=== PATIENT | female | born 1990 | race Caucasian/White ===

== ENCOUNTER 2018-05-27 17:45 | Inpatient (IN) | payer OTHER ==
[2018-05-27 18:29] VITALS: BMI 25.2
--- NOTE | 2018-05-27 19:24 | HP ---
COWS - Scale Resting Pulse: 1= IN 81-100 Sweatin= Streaming Sweat Restless Observation: 1= Difficult to Sit Still Pupil Size: 1= Pupils >than Normal Bone or Joint Aches: 1= Mild Discomfort Runny Nose/ Eye Tearin= Runny Nose/Eyes GI Upset > 30mins: 2= Nausea/Diarrhea Tremor Observation: 2= Slight Tremor Visible Yawning Observation: 0= None Anxiety or Irritability: 2=Irritable/Anxious Goose Flesh Skin: 0=Smooth Skin COWS Score: 16 CIWA Score Nausea/Vomitin Muscle Tremors: 2 Anxiety: 3 Agitation: 0-Normal Activity Paroxysmal Sweats: 2 Orientation: 1-Uncertain about Date Tacttile Disturbances: 1-Very Mild Itch/Numbness Auditory Disturbances: 0-None Visual Disturbances: 0-None Headache: 0-None Present CIWA-Ar Total Score: 12 - Admission Criteria OAS Guidelines: Admission for Medically Managed Detox: Requires at least one of the followin. CIWA greater than 12 2. Seizures within the past 24 hours 3. Delirium tremens within the past 24 hours 4. Hallucinations within the past 24 hours 5. Acute intervention needed for co occurring medical disorder 6. Acute intervention needed for co occurring psychiatric disorder 7. Severe withdrawal that cannot be handled at a lower level of care (continued vomiting, continued diarrhea, abnormal vital signs) requiring intravenous medication and/or fluids 8. Patient presents the following: CIWA greater than 12 Admission Criteria Met: Admission criteria met Admission ROS [facility] Chief Complaint: "heroin and xanax detox" Allergies/Adverse Reactions: Allergies Allergy/AdvReac Type Severity Reaction Status Date / Time No Known Allergies Allergy Verified 05/27/18 18:19 History of Present Illness: 27 yo female with hx of xanax, heroin (IV), cocaine (nasal) dependence is here seeking detox. Reports last detox two years ago at [facility]. Denies needle sharing, reports receives needles through need;e exchange program. PMHX: Asthma, Hep C. Psych: Depression and anxiety , reports no psych follow up, reports only medicate while in detox. Denies hx of seizures, blackouts or overdose. Longest period sobriety six months. Exam Limitations: No Limitations - Ebola screening Have you traveled outside of the country in the last 21 days: No (N) Have you had contact with anyone from an Ebola affected area: No Do you have a fever: No - Review of Systems Constitutional: Chills, Diaphoresis, Loss of Appetite, Weakness (20 lbs in past two months), Unintentional Wgt. Loss EENT: reports: Tearing, Nose Congestion (runny nose) Respiratory: reports: No Symptoms reported Cardiac: reports: No Symptoms Reported GI: reports: Constipated (last BM this AM), Nausea, Poor Appetite, Poor Fluid Intake : reports: No Symptoms Reported Musculoskeletal: reports: Back Pain, Muscle Pain Integumentary: reports: Pruritus Neuro: reports: Weakness Endocrine: reports: Increased Thirst Hematology: reports: No Symptoms Reported Psychiatric: reports: Orientated x3, Depressed Other Systems: Reviewed and Negative Patient History - Patient Medical History Hx Anemia: No Hx Asthma: Yes Hx Chronic Obstructive Pulmonary Disease (COPD): No Hx Cancer: No Hx Cardiac Disorders: No Hx Congestive Heart Failure: No Hx Hypertension: No Hx Hypercholesterolemia: No Hx Pacemaker: No HX Cerebrovascular Accident: No Hx Seizures: No Hx Dementia: No Hx Diabetes: No Hx Gastrointestinal Disorders: No Hx Liver Disease: Yes (Hep C) Hx Genitourinary Disorders: No Hx Sexually Transmitted Disorders: Yes (gonorrhea ) Hx Renal Disease (ESRD): No Hx Thyroid Disease: No Hx Human Immunodeficiency Virus (HIV): No Hx Hepatitis C: Yes (no tx ) Hx Depression: Yes Hx Suicide Attempt: No Hx Bipolar Disorder: No Hx Schizophrenia: No - Patient Surgical History Past Surgical History: Yes Other Surgical History: rght ankle fx - PPD History Previous Implant?: No Documented Results: Negative w/o proof PPD to be Administered?: Yes - Reproductive History Patient is a Female of Child Bearing Age (11 -55 yrs old): Yes Last Menstrual Period: 05/25/18 Patient : No - Smoking Cessation Smoking history: Current every day smoker Have you smoked in the past 12 months: Yes Aproximately how many cigarettes per day: 20 Hx Chewing Tobacco Use: No Initiated information on smoking cessation: Yes 'Breaking Loose' booklet given: 05/27/18 - Substance & Tx. History Hx Alcohol Use: No Hx Substance Use: Yes Substance Use Type: Heroin, Tranquilizers Hx Substance Use Treatment: Yes (Reports last detox two years ago at [facility].) - Substances abused Alprazolam (Xanax) Substance route: Oral Frequency: Daily Amount used: 3 x 2MG + Age of first use: 12 Date of last use: 05/27/18 Heroin Substance route: Injection Frequency: Daily Amount used: 2 BUNDLES + Age of first use: 15 Date of last use: 05/27/18 Family Disease History - Family Disease History Other Family History: uncle: DERW, heroin, THC Admission Physical Exam [facility] - Vital Signs Vital Signs: Vital Signs - 24 hr 05/27/18 18:19 Temperature 96.0 F L Pulse Rate 88 Respiratory 18 Rate Blood Pressure 110/70 - Physical General Appearance: Yes: Nourished, Disheveled, Moderate Distress, Thin, Sweating, Anxious HEENTM: Yes: EOMI, Hearing grossly Normal, Normal ENT Inspection, Normal Voice, Pharynx Normal, Rhinorrhea, Other (cheilitis) Respiratory: Yes: Chest Non-Tender, Lungs Clear, Normal Breath Sounds, No Respiratory Distress, No Accessory Muscle Use Neck: Yes: Within Normal Limits Breast: Yes: Breast Exam Deferred Cardiology: Yes: Regular Rhythm, Regular Rate Abdominal: Yes: Normal Bowel Sounds, Non Tender, Flat, Soft Genitourinary: Yes: Within Normal Limits Back: Yes: Normal Inspection Musculoskeletal: Yes: full range of Motion, Gait Steady, Pelvis Stable Extremities: Yes: Normal Capillary Refill, Normal Inspection, Normal Range of Motion, Non-Tender Neurological: Yes: interventional sale consultant II-XII NML intact, Fully Oriented, Alert, Motor Strength 5/5, Depressed Affect Integumentary: Yes: Track Francisco (right foot, bilateral anticubital) Lymphatic: Yes: Within Normal Limits - Diagnostic (1) IVDU (intravenous drug user) Current Visit: Yes Status: Acute (2) Asthma Current Visit: Yes Status: Chronic Qualifiers: Asthma severity: mild Asthma persistence: intermittent Asthma complication type: unspecified Qualified Code(s): J45.20 - Mild intermittent asthma, uncomplicated (3) Cocaine dependence Current Visit: Yes Status: Acute Qualifiers: Substance use status: uncomplicated Qualified Code(s): F14.20 - Cocaine dependence, uncomplicated (4) Sedative, hypnotic or anxiolytic dependence with withdrawal, uncomplicated Current Visit: Yes Status: Acute (5) Opioid dependence with withdrawal Current Visit: Yes Status: Acute Cleared for Admission [facility] - Detox or Rehab [facility] Level of Care: Medically Managed Detox Regimen/Protocol: Methadone/Valium Breathalyzer - Breathalyzer Breathalyzer: 0 POC Urine test - Test device test lot number: [id number] Expiration date: 10/13/19 - Control test control: Yes - Result Urine Test Results: Negative - NO line present Urine Drug Screen - Test Device Lot number: [id number] Expiration date: 01/12/20 - Control Is test valid?: Yes - Results Drug screen NEGATIVE: No Urine drug screen results: DREW-Cocaine, FEN-Fentanyl, MOP-Opiates, BZO- Benzodiazepines Inpatient Rehab Admission - Rehab Decision to Admit Inpatient rehab admission?: No
[2018-05-27] MEDS ORDERED: BISMUTH SUBSALICYLATE 524 MG/30 ML UD PO PRN (19:30)
[2018-05-27] MEDS ORDERED: diazePAM 5 MG TABLET PO PRN (19:30)
[2018-05-27] MEDS ORDERED: MAG HYDROX/AL HYDROX/SIMETH 30 ML UNIT-DOSE CUP PO PRN (19:30)
[2018-05-27] MEDS ORDERED: MAGNESIUM CITRATE 300 ML BOTTLE PO PRN (19:30)
[2018-05-27] MEDS ORDERED: cloNIDine HCL 0.1 MG TABLET PO PRN (19:30)
[2018-05-27] MEDS ORDERED: NICOTINE POLACRILEX 2 MG GUM BUC PRN (19:30)
[2018-05-27] MEDS ORDERED: ACETAMINOPHEN 325 MG TABLET (FP) PO PRN ×2 (19:30)
[2018-05-27] MEDS ORDERED: MENTHOL/PHENOL 1 EACH UD MM PRN (19:30)
[2018-05-27] MEDS ORDERED: MAGNESIUM HYDROX 2400MG/30ML ORAL SUSPENSION 30 ML CUP PO PRN (19:30)
[2018-05-27] MEDS ORDERED: IBUPROFEN 400 MG TABLET (FP) PO PRN (19:30)
[2018-05-27] MEDS ORDERED: METHOCARBAMOL 500 MG TABLET PO PRN (19:30)
[2018-05-27] MEDS ORDERED: METHADONE HCL 10 MG TABLET (FOR DETOX USE ONLY) PO ONE ×2 (20:00→23:00)
[2018-05-27] MEDS ORDERED: diphenhydrAMINE HCL 25 MG CAPSULE (FP) PO ONE (22:01)
--- NOTE | 2018-05-27 22:03 | PN ---
S Progress Note Note: Vital Signs Temperature 97.5 F L 05/27/18 21:36 Pulse Rate 81 05/27/18 21:36 Respiratory Rate 19 05/27/18 21:36 Blood Pressure 108/68 05/27/18 21:36 O2 Sat by Pulse Oximetry (%) c/o of difficulty sleeping one time dose benadryl 50 mg hs
[2018-05-27] MEDS: BACITRACIN 0.9 GM PACKET TP SCH (22:17)
[2018-05-27] MEDS: THIAMINE HCL 100 MG TABLET (FP) PO SCH (22:18)
[2018-05-27] MEDS: diazePAM 5 MG TABLET PO SCH (22:30)
[2018-05-28] MEDS: diazePAM 5 MG TABLET PO SCH ×3 (05:25→22:05)
[2018-05-28] MEDS ORDERED: METHADONE HCL 10 MG TABLET (FOR DETOX USE ONLY) PO ONE (10:00)
[2018-05-28 10:08] LABS: ALBUMIN 3.5 g/dl (3.4-5.0); ALK PHOS 59 U/L (45-117); ANION GAP 4 MMOL/L (8-16); BILIRUBIN,TOTAL 0.4 mg/dL (0.2-1); BLOOD UREA NITROGEN 7 mg/dL (7-18); CALCIUM 9.1 mg/dL (8.5-10.1); CHLORIDE 104 mmol/L (98-107); CO2 31 mmol/L (21-32); CREATININE 0.7 mg/dL (0.55-1.3); GLUCOSE,RANDOM 87 mg/dL (74-106); POTASSIUM 3.7 mmol/L (3.5-5.1); SGOT/AST 12 U/L (15-37); SGPT/ALT 27 U/L (13-61); SODIUM 139 mmol/L (136-145)
[2018-05-28 10:13] LABS: HEMATOCRIT 33.9 % (32.4-45.2); HEMOGLOBIN 11.1 GM/dL (10.7-15.3); MCH 26.1 pg (25.7-33.7); MCHC 32.6 g/dl (32.0-36.0); MEAN CELL VOLUME 80.1 fl (80-96); MEAN PLT VOLUME 8.6 fl (7.5-11.1); PLATELET COUNT 268 K/MM3 (134-434); RBC 4.24 M/mm3 (3.60-5.2); RDW 17.5 % (11.6-15.6); WHITE BLOOD COUNT 6.3 K/mm3 (4.0-10.0)
--- NOTE | 2018-05-28 10:21 | PN ---
[facility] CIWA - CIWA Score Nausea/Vomitin-No Nausea/No Vomiting Muscle Tremors: 3 Anxiety: 3 Agitation: 3 Paroxysmal Sweats: 3 Orientation: 0-Oriented Tacttile Disturbances: 0-None Auditory Disturbances: 0-None Visual Disturbances: 0-None Headache: 0-None Present CIWA-Ar Total Score: 12 S COWS - Scale Resting Pulse: 0= ME 80 or Below Sweatin=Flushed/Facial Moisture Restless Observation: 1= Difficult to Sit Still Pupil Size: 0= Normal to Room Light Bone or Joint Aches: 1= Mild Discomfort Runny Nose/ Eye Tearin= Runny Nose/Eyes GI Upset > 30mins: 0= None Tremor Observation of Outstretched Hands: 1= Tremor [place], Not Seen Yawning Observation: 2= >3x During Session Anxiety or Irritability: 1=Feels Anxious/Irritable Goose Flesh Skin: 0=Smooth Skin COWS Score: 10 S Progress Note (SOAP) Subjective: irritable agitation sweats shakes interrupted sleep body aches nausea Objective: 05/28/18 10:19 Vital Signs Temperature 97.2 F L 05/28/18 09:17 Pulse Rate 70 05/28/18 09:17 Respiratory Rate 18 05/28/18 09:17 Blood Pressure 104/64 05/28/18 09:17 O2 Sat by Pulse Oximetry (%) Laboratory Tests 05/28/18 05/28/18 07:00 07:00 WBC 6.3 RBC 4.24 Hgb 11.1 Hct 33.9 MCV 80.1 MCH 26.1 MCHC 32.6 RDW 17.5 H Plt Count 268 MPV 8.6 Sodium 139 Potassium 3.7 Chloride 104 Carbon Dioxide 31 Anion Gap 4 L BUN 7 Creatinine 0.7 Creat Clearance w eGFR 99.64 Random Glucose 87 Calcium 9.1 Total Bilirubin 0.4 AST 12 L ALT 27 Alkaline Phosphatase 59 Total Protein 8.0 Albumin 3.5 aaox3 ambulating no acute distress Assessment: 05/28/18 11:03 withdrawal sx Plan: continue detox increase fluids
[2018-05-28] MEDS: BACITRACIN 0.9 GM PACKET TP SCH ×2 (10:24→22:05)
[2018-05-28] MEDS: NICOTINE 21 MG/24 HOURS TOPICAL PATCH TD SCH (10:25)
[2018-05-28] MEDS: PRENATAL VITAMINS W/ FOLIC ACID TABLET (FP) PO SCH (10:25)
--- NOTE | 2018-05-28 10:55 | EKG ---
Test Reason : Blood Pressure : / mmHG Vent. Rate : 057 BPM Atrial Rate : 057 BPM P-R Int : 158 ms QRS Dur : 092 ms QT Int : 470 ms P-R-T Axes : 078 065 062 degrees QTc Int : 457 ms SINUS BRADYCARDIA OTHERWISE NORMAL ECG WHEN COMPARED WITH ECG OF 27-MAY-2018 22:38, NO SIGNIFICANT CHANGE WAS FOUND Confirmed by MD Ashli, Josh ([id number]) on 05/28/2018 10:55:32 AM Referred By: Confirmed By:Josh Cornelius MD
--- NOTE | 2018-05-28 11:09 | CONSULT ---
[facility] Psychiatric Consult - Data Date of interview: 05/28/18 Admission source: Self-referred Identifying data: Ms Giron is a 27 years old [place] female, mother of 2 children, unemployed receiving public assistance, homeless seeking detox treatment for opioid and benzodiazepine Substance Abuse History: Reports history of heroin and xanax use. Refer to addiction counselor's summary for further information Medical History: Significant for bronchial astma, hepatis C, treatment for gonorrhea and orthosurgery for fracture right ankle. Smokes cigarettes 1 ppd Psychiatric History: Denies history of previous psychiatric treatment Physical/Sexual Abuse/Trauma History: Denies history of emotional, physical or sexual abuse as well as DV relationship Additional Comment: Reports history of a few misdemeanor arrests Mental Status Exam - Mental Status Exam Alert and Oriented to: Place, Person Cognitive Function: Fair Patient Appearance: Well Groomed Mood: Hopeful, Euthymic Patient Behavior: Cooperative Speech Pattern: Clear Voice Loudness: Normal Thought Process: Intact, Goal Oriented Hallucinations: Denies Suicidal Ideation: Denies Homicidal Ideation: Denies Insight/Judgement: Poor Sleep: Poorly Appetite: Poor Muscle strength/Tone: Normal Gait/Station: Normal Psychiatric Findings - Problem List ([place] 1, 2,3) (1) Substance-induced sleep disorder Current Visit: Yes Status: Acute (2) Opioid dependence with withdrawal Current Visit: Yes Status: Acute (3) Sedative, hypnotic or anxiolytic dependence with withdrawal, uncomplicated Current Visit: Yes Status: Acute (4) Nicotine dependence Current Visit: Yes Status: Chronic (5) Asthma Current Visit: Yes Status: Chronic Qualifiers: Asthma severity: mild Asthma persistence: intermittent Asthma complication type: unspecified Qualified Code(s): J45.20 - Mild intermittent asthma, uncomplicated (6) Hepatitis C Current Visit: Yes Status: Chronic - Initial Treatment Plan Initial Treatment Plan: Continue inpatient detoxification
--- NOTE | 2018-05-28 13:04 | EKG ---
Test Reason : Blood Pressure : / mmHG Vent. Rate : 056 BPM Atrial Rate : 056 BPM P-R Int : 162 ms QRS Dur : 096 ms QT Int : 500 ms P-R-T Axes : 072 069 074 degrees QTc Int : 482 ms SINUS BRADYCARDIA WITH SINUS ARRHYTHMIA NONSPECIFIC T WAVE ABNORMALITY PROLONGED QT ABNORMAL ECG NO PREVIOUS ECGS AVAILABLE Confirmed by Douglas Fitzgerald ([id number]) on 05/28/2018 1:04:03 PM Referred By: WENDI MCDONOUGH Confirmed By:Douglas Fitzgerald
[2018-05-28] MEDS: MELATONIN 5 MG TABLETS PO PRN (22:05)
[2018-05-28] MEDS: THIAMINE HCL 100 MG TABLET (FP) PO SCH (22:05)
[2018-05-29] MEDS ORDERED: METHADONE HCL 10 MG TABLET (FOR DETOX USE ONLY) PO ONE (10:00)
[2018-05-29] MEDS: NICOTINE 21 MG/24 HOURS TOPICAL PATCH TD SCH (10:23)
[2018-05-29] MEDS: diazePAM 5 MG TABLET PO SCH ×2 (10:24→22:08)
[2018-05-29] MEDS: BACITRACIN 0.9 GM PACKET TP SCH ×2 (10:24→22:08)
[2018-05-29] MEDS: PRENATAL VITAMINS W/ FOLIC ACID TABLET (FP) PO SCH (10:24)
[2018-05-29] MEDS ORDERED: cloNIDine HCL 0.1 MG TABLET PO ONE (12:15)
--- NOTE | 2018-05-29 12:18 | PN ---
[facility] CIWA - CIWA Score Nausea/Vomitin-No Nausea/No Vomiting Muscle Tremors: 3 Anxiety: 2 Agitation: 3 Paroxysmal Sweats: 3 Orientation: 0-Oriented Tacttile Disturbances: 0-None Auditory Disturbances: 0-None Visual Disturbances: 0-None Headache: 0-None Present CIWA-Ar Total Score: 11 S COWS - Scale Resting Pulse: 0= [place] 80 or Below Sweatin=Flushed/Facial Moisture Restless Observation: 1= Difficult to Sit Still Pupil Size: 0= Normal to Room Light Bone or Joint Aches: 1= Mild Discomfort Runny Nose/ Eye Tearin= Nasal Congestion GI Upset > 30mins: 0= None Tremor Observation of Outstretched Hands: 1= Tremor [place], Not Seen Yawning Observation: 1= 1-2x During Session Anxiety or Irritability: 1=Feels Anxious/Irritable Goose Flesh Skin: 3=Piloerection COWS Score: 11 [facility] Progress Note (SOAP) Subjective: sweats restless anxiety body aches shakes Objective: 05/29/18 12:17 Vital Signs Temperature 98.1 F 05/29/18 09:41 Pulse Rate 71 05/29/18 09:41 Respiratory Rate 16 05/29/18 09:41 Blood Pressure 128/68 05/29/18 09:41 O2 Sat by Pulse Oximetry (%) Laboratory Tests 05/28/18 05/28/18 05/28/18 07:00 07:00 07:00 WBC 6.3 RBC 4.24 Hgb 11.1 Hct 33.9 MCV 80.1 MCH 26.1 MCHC 32.6 RDW 17.5 H Plt Count 268 MPV 8.6 Sodium 139 Potassium 3.7 Chloride 104 Carbon Dioxide 31 Anion Gap 4 L BUN 7 Creatinine 0.7 Creat Clearance w eGFR 99.64 Random Glucose 87 Calcium 9.1 Total Bilirubin 0.4 AST 12 L ALT 27 Alkaline Phosphatase 59 Total Protein 8.0 Albumin 3.5 RPR Titer Nonreactive labs noted aaox3 ambulating no acute distress Assessment: 05/29/18 12:17 withdrawal sx Plan: continue detox increase fluids baclofen tid naproxyn 500mg bid clonidine 0.1mg bid with parameters ordered.
[2018-05-29] MEDS: BACLOFEN 10 MG TABLET (FP) PO SCH ×2 (14:54→22:08)
[2018-05-29] MEDS ORDERED: cloNIDine HCL 0.1 MG TABLET PO SCH (22:00)
[2018-05-29] MEDS: MELATONIN 5 MG TABLETS PO PRN (22:08)
[2018-05-29] MEDS: THIAMINE HCL 100 MG TABLET (FP) PO SCH (22:08)
[2018-05-30] MEDS ORDERED: diazePAM 5 MG TABLET PO SCH (06:00)
[2018-05-30] MEDS: BACLOFEN 10 MG TABLET (FP) PO SCH ×3 (06:22→22:23)
[2018-05-30] MEDS ORDERED: METHADONE HCL 10 MG TABLET (FOR DETOX USE ONLY) PO ONE (10:00)
[2018-05-30] MEDS: PRENATAL VITAMINS W/ FOLIC ACID TABLET (FP) PO SCH (10:53)
[2018-05-30] MEDS: BACITRACIN 0.9 GM PACKET TP SCH ×2 (10:53→22:23)
[2018-05-30] MEDS: NICOTINE 21 MG/24 HOURS TOPICAL PATCH TD SCH (10:54)
--- NOTE | 2018-05-30 12:57 | PN ---
[facility] Progress Note (SOAP) Subjective: sweats interrupted sleep anxiety Objective: 05/30/18 12:56 Vital Signs Temperature 97.9 F 05/30/18 06:30 Pulse Rate 49 L 05/30/18 06:30 Respiratory Rate 18 05/30/18 06:30 Blood Pressure 96/56 L 05/30/18 06:30 O2 Sat by Pulse Oximetry (%) aaox3 ambulating no acute distress Assessment: 05/30/18 12:57 some withdrawal sx Plan: continue detox increase fluids d/c in am
[2018-05-30 17:22] VITALS: TEMP 98.1
[2018-05-30] MEDS: THIAMINE HCL 100 MG TABLET (FP) PO SCH (22:23)
[2018-05-30] MEDS: MELATONIN 5 MG TABLETS PO PRN (22:24)
[2018-05-31] MEDS: BACLOFEN 10 MG TABLET (FP) PO SCH (05:35)
[2018-05-31] MEDS ORDERED: METHADONE HCL 5 MG TABLET (FOR DETOX USE ONLY) PO ONE (06:00)
[2018-05-31 07:02] VITALS: BP 111/61; PULSE 64
--- NOTE | 2018-05-31 08:55 | DS ---
[facility] Detox Discharge Summary Admission Date: 05/27/18 Discharge Date: 05/31/18 - History Present History: Opioid Dependence Additional Comments: Patient medically stable. Patient to follow up ar [facility]. Patient to follow up with primary care provider. - Physical Exam Results Vital Signs: Vital Signs Temperature 98.1 F 05/31/18 06:00 Pulse Rate 64 05/31/18 06:00 Respiratory Rate 18 05/31/18 06:00 Blood Pressure 111/61 05/31/18 06:00 O2 Sat by Pulse Oximetry (%) - Treatment Hospital Course: Detox Protocol Followed, Detoxed Safely, Responded well, Discharged Condition Good, Rehab Referral Accepted - Medication Discharge Medications: Ambulatory Orders NK [No Known Home Medication] 05/27/18 - Diagnosis (1) IVDU (intravenous drug user) Status: Acute (2) Asthma Status: Chronic Qualifiers: Asthma severity: mild Asthma persistence: intermittent Asthma complication type: unspecified Qualified Code(s): J45.20 - Mild intermittent asthma, uncomplicated (3) Cocaine dependence Status: Acute Qualifiers: Substance use status: uncomplicated Qualified Code(s): F14.20 - Cocaine dependence, uncomplicated (4) Sedative, hypnotic or anxiolytic dependence with withdrawal, uncomplicated Status: Acute (5) Opioid dependence with withdrawal Status: Acute - AMA Did Patient Leave Against Medical Advice: Yes
== END 2018-05-31 09:00 | disposition home or self-care (01) | DRG 773 ==
LOC: YASAS 17:45 → Y6N 19:47
PROVIDERS: ADMIT Surgery; ATTEND Surgery
PROC: HZ2ZZZZ Detoxification Services for Substance Abuse Treatment (ICD-10-PCS; principal; 2018-05-27)
DX: F11.23 Opioid dependence with withdrawal (principal); F13.230 Sedative, hypnotic or anxiolytic dependence with withdrawal, uncomplicated; F14.20 Cocaine dependence, uncomplicated; F17.210 Nicotine dependence, cigarettes, uncomplicated; F19.282 Other psychoactive substance dependence with psychoactive substance-induced sleep disorder; J45.20 Mild intermittent asthma, uncomplicated; B18.2 Chronic viral hepatitis C; Z87.42 Personal history of other diseases of the female genital tract
CPT/HCPCS: 36415; 80053; 85027; 86593; 93005; 93010; J0475; J0735

== ENCOUNTER 2018-06-27 14:12 | Inpatient (IN) | payer OTHER ==
[2018-06-27 14:56] VITALS: BMI 24.7
--- NOTE | 2018-06-27 15:51 | HP ---
COWS - Scale Resting Pulse: 2= [place] 101-120 Sweatin= Chills/Flushing Restless Observation: 3= Extraneous Movement Pupil Size: 0= Normal to Room Light Bone or Joint Aches: 4=Acute Joint/Muscle Pain Runny Nose/ Eye Tearin= Runny Nose/Eyes GI Upset > 30mins: 2= Nausea/Diarrhea Tremor Observation: 2= Slight Tremor Visible Yawning Observation: 0= None Anxiety or Irritability: 4=Extreme Anxiety Goose Flesh Skin: 0=Smooth Skin COWS Score: 20 CIWA Score Nausea/Vomitin Muscle Tremors: 4-Moderate,w/Arms Extend Anxiety: 4-Mod. Anxious/Guarded Agitation: 4-Moderately Restless Paroxysmal Sweats: 4-Forehead w/Sweat Beads Orientation: 3-Disoriented Date>2 days Tacttile Disturbances: 0-None Auditory Disturbances: 2-Mild Harshness/Frighten Visual Disturbances: 0-None Headache: 0-None Present CIWA-Ar Total Score: 24 - Admission Criteria OASAS Guidelines: Admission for Medically Managed Detox: Requires at least one of the followin. CIWA greater than 12 2. Seizures within the past 24 hours 3. Delirium tremens within the past 24 hours 4. Hallucinations within the past 24 hours 5. Acute intervention needed for co occurring medical disorder 6. Acute intervention needed for co occurring psychiatric disorder 7. Severe withdrawal that cannot be handled at a lower level of care (continued vomiting, continued diarrhea, abnormal vital signs) requiring intravenous medication and/or fluids 8. Admission ROS [facility] Allergies/Adverse Reactions: Allergies Allergy/AdvReac Type Severity Reaction Status Date / Time No Known Allergies Allergy Verified 06/27/18 14:51 History of Present Illness: pt here requesting detox from heroin use , reports 2.5 bundles /day " and more " , reports relapse after d/c from this facility , IVDU and via inhalation , needles from exchange program , denies sharing , + re-using , denies abscess , denies prior OD , first age use 3 years ago , multiple detox admissions ( [facility], this facility ) , denies prior rehab. Denies MMTP cocaine : 1 bag via inhalation and > 2 bags crack cocaine daily < 1 year xanax : 2-3 /day x 1 year , denies seizures , latest use yesterday " one piece " current symptoms as above etoh : occaisonal " not much " tobacco : 1 ppd PMHX : asthma since childhood ( hospitalized in [place] , denies intubation ) , hep C s/p tx 2 years ago ( RF= IVDU ) PSHX : C-sx x2 , r ankle ORIF w/ hardware 2-3 years ago ( does not recall exact date ) Psych : denies current SI / HI , reports depression " sometimes " lmp : 2 days ago irregular ages 12 and 9 both in [place] w/ maternal GM SHx : homeless , unemployed , reports finances habit from friends and family , denies current illicit activities , reports prior legal issues drug - related " it's all fixed now " . Exam Limitations: Clinical Condition - Ebola screening Have you traveled outside of the country in the last 21 days: No (N) Have you had contact with anyone from an Ebola affected area: No Do you have a fever: No - Review of Systems Constitutional: See HPI EENT: reports: See HPI, Tearing, Nose Congestion Respiratory: reports: No Symptoms reported Cardiac: reports: No Symptoms Reported GI: reports: See HPI : reports: No Symptoms Reported Musculoskeletal: reports: See HPI Integumentary: reports: See HPI Neuro: reports: No Symptoms reported Endocrine: reports: No Symptoms Reported Psychiatric: reports: Orientated x3, Anxious Patient History - Patient Medical History Hx Anemia: No Hx Asthma: Yes Hx Chronic Obstructive Pulmonary Disease (COPD): No Hx Cancer: No Hx Cardiac Disorders: No Hx Congestive Heart Failure: No Hx Hypertension: No Hx Hypercholesterolemia: No Hx Pacemaker: No HX Cerebrovascular Accident: No Hx Seizures: No Hx Dementia: No Hx Diabetes: No Hx Gastrointestinal Disorders: No Hx Liver Disease: Yes (Hep C) Hx Genitourinary Disorders: No Hx Sexually Transmitted Disorders: Yes (gonorrhea ) Hx Renal Disease (ESRD): No Hx Thyroid Disease: No Hx Human Immunodeficiency Virus (HIV): No Hx Hepatitis C: Yes (no tx ) Hx Depression: Yes Hx Suicide Attempt: No Hx Bipolar Disorder: No Hx Schizophrenia: No - Patient Surgical History Past Surgical History: Yes Hx Neurologic Surgery: No Hx Cataract Extraction: No Hx Cardiac Surgery: No Hx Lung Surgery: No Hx Breast Surgery: No Hx Breast Biopsy: No Hx Abdominal Surgery: No Hx Appendectomy: No Hx Cholecystectomy: No Hx Genitourinary Surgery: No Hx Section: No Hx Orthopedic Surgery: No Other Surgical History: rght ankle fx - PPD History Date: 05/29/18 - Reproductive History Last Menstrual Period: 05/25/18 - Smoking Cessation Smoking history: Current every day smoker Have you smoked in the past 12 months: Yes Aproximately how many cigarettes per day: 20 Hx Chewing Tobacco Use: No Initiated information on smoking cessation: No - Substances abused Alprazolam (Xanax) Substance route: Oral Frequency: Daily Amount used: 3 x 2MG + Age of first use: 26 Date of last use: 06/26/18 Heroin Substance route: Injection Frequency: Daily Amount used: 2 BUNDLES + Age of first use: 23 Date of last use: 06/27/18 Alcohol Substance route: Oral Frequency: Daily Amount used: VODKA- 1PT/ 2 BEERS Age of first use: 13 Date of last use: 06/26/18 Cocaine Substance route: Inhalation Frequency: Daily Amount used: 2BAGS Age of first use: 20 Date of last use: 06/26/18 Family Disease History - Family Disease History Family Disease History: Diabetes: Grandparent (hld, dm , htn ), Other: Grandparent, Father (unknown ), Mother (d. cervical CA age 40 ), Brother (1 w / DM , anemia , hernia , spina bifida ), Sister (8 siblings ), Son (A & W , does not keep in touch ), Daughter (A & W ) Admission Physical Exam [facility] - Vital Signs Vital Signs: Vital Signs - 24 hr 06/27/18 14:50 Temperature 98 F Pulse Rate 102 H Respiratory 18 Rate Blood Pressure 123/66 - Physical General Appearance: Yes: Disheveled, Moderate Distress, Anxious HEENTM: Yes: EOMI, Hearing grossly Normal, Normocephalic, Normal Voice, Nasal Congestion, Rhinorrhea, Other (poor dentition , many missing teeth) Respiratory: Yes: Chest Non-Tender, Lungs Clear Neck: Yes: No masses,lesions,Nodules, Trachea in good position Cardiology: Yes: Regular Rhythm, Regular Rate, S1, S2 Abdominal: Yes: Normal Bowel Sounds, Soft Musculoskeletal: Yes: Gait Steady Extremities: Yes: Normal Range of Motion, Non-Tender Neurological: Yes: Alert, Motor Strength 5/5 Integumentary: Yes: Warm, Track Francisco (extensive dilshad UE , / feet w/ induration , no apparent abscess at this time) - Diagnostic (1) Cocaine dependence Current Visit: Yes Status: Chronic Qualifiers: Substance use status: uncomplicated Qualified Code(s): F14.20 - Cocaine dependence, uncomplicated (2) Opioid dependence with withdrawal Current Visit: Yes Status: Acute (3) Sedative, hypnotic or anxiolytic dependence with withdrawal, uncomplicated Current Visit: Yes Status: Acute (4) Nicotine dependence Current Visit: Yes Status: Chronic Qualifiers: Nicotine product type: cigarettes Breathalyzer - Breathalyzer Breathalyzer: 0 POC Urine test - Test device test lot number: [id number] Expiration date: 10/13/19 - Control test control: Yes Urine Drug Screen - Test Device Lot number: [id number] Expiration date: 03/14/20 - Control Is test valid?: Yes - Results Drug screen NEGATIVE: No Urine drug screen results: DREW-Cocaine, MET-Methamphetamine, AMP-Amphetamines, FEN-Fentanyl, MOP-Opiates, OXY-Oxycodone, BZO-Benzodiazepines Inpatient Rehab Admission - Rehab Decision to Admit Inpatient rehab admission?: No
[2018-06-27] MEDS ORDERED: METHOCARBAMOL 500 MG TABLET PO PRN (16:01)
[2018-06-27] MEDS ORDERED: NICOTINE POLACRILEX 2 MG GUM BUC PRN (16:01)
[2018-06-27] MEDS ORDERED: MAGNESIUM HYDROX 2400MG/30ML ORAL SUSPENSION 30 ML CUP PO PRN (16:01)
[2018-06-27] MEDS ORDERED: BISMUTH SUBSALICYLATE 524 MG/30 ML UD PO PRN (16:01)
[2018-06-27] MEDS ORDERED: ACETAMINOPHEN 325 MG TABLET (FP) PO PRN ×2 (16:01)
[2018-06-27] MEDS ORDERED: MAGNESIUM CITRATE 300 ML BOTTLE PO PRN (16:01)
[2018-06-27] MEDS ORDERED: cloNIDine HCL 0.1 MG TABLET PO PRN (16:01)
[2018-06-27] MEDS ORDERED: MAG HYDROX/AL HYDROX/SIMETH 30 ML UNIT-DOSE CUP PO PRN (16:01)
[2018-06-27] MEDS ORDERED: MENTHOL/PHENOL 1 EACH UD MM PRN (16:01)
[2018-06-27] MEDS ORDERED: METHADONE HCL 10 MG TABLET (FOR DETOX USE ONLY) PO ONE ×2 (16:05→23:00)
[2018-06-27] MEDS: diazePAM 5 MG TABLET PO SCH (22:07)
[2018-06-27] MEDS: THIAMINE HCL 100 MG TABLET (FP) PO SCH (22:07)
[2018-06-27] MEDS: MELATONIN 5 MG TABLETS PO PRN (22:07)
[2018-06-28] MEDS: diazePAM 5 MG TABLET PO SCH ×3 (05:31→21:26)
[2018-06-28] MEDS ORDERED: METHADONE HCL 10 MG TABLET (FOR DETOX USE ONLY) PO ONE ×2 (10:00)
[2018-06-28 10:09] LABS: HEMATOCRIT 34.8 % (32.4-45.2); MCH 25.6 pg (25.7-33.7); MCHC 31.6 g/dl (32.0-36.0); MEAN CELL VOLUME 80.9 fl (80-96); MEAN PLT VOLUME 8.3 fl (7.5-11.1); PLATELET COUNT 400 K/MM3 (134-434); RBC 4.31 M/mm3 (3.60-5.2); RDW 18.5 % (11.6-15.6)
[2018-06-28 10:20] LABS: ALBUMIN 3.1 g/dl (3.4-5.0); BILIRUBIN,TOTAL 0.3 mg/dL (0.2-1); CALCIUM 9.2 mg/dL (8.5-10.1); CREATININE 0.6 mg/dL (0.55-1.3); POTASSIUM 3.5 mmol/L (3.5-5.1); TOT PROT 7.2 g/dl (6.4-8.2)
[2018-06-28] MEDS: PRENATAL VITAMINS W/ FOLIC ACID TABLET (FP) PO SCH (10:27)
[2018-06-28] MEDS: diazePAM 5 MG TABLET PO PRN (10:27)
[2018-06-28] MEDS: NICOTINE 14 MG/24 HOURS TOPICAL PATCH TD SCH (10:27)
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
[2018-06-28] MEDS ORDERED: PROCHLORPERAZINE MALEATE 5 MG TABLET PO PRN (16:27)
--- NOTE | 2018-06-28 16:34 | PN ---
S CIWA - CIWA Score Nausea/Vomitin Muscle Tremors: 3 Anxiety: 4-Mod. Anxious/Guarded Agitation: 1-Slight > Activity Paroxysmal Sweats: No Perspiration Orientation: 0-Oriented Tacttile Disturbances: 3-Moderate Itch/Numb/Burn Auditory Disturbances: 0-None Visual Disturbances: 1-Very Mild Sensitivity Headache: 3-Moderate CIWA-Ar Total Score: 18 BHS COWS - Scale Resting Pulse: 0= [place] 80 or Below Sweatin= Chills/Flushing Restless Observation: 1= Difficult to Sit Still Pupil Size: 0= Normal to Room Light Bone or Joint Aches: 2= Severe Diffuse Aches Runny Nose/ Eye Tearin= None GI Upset > 30mins: 2= Nausea/Diarrhea Tremor Observation of Outstretched Hands: 2= Slight Tremor Visible Yawning Observation: 1= 1-2x During Session Anxiety or Irritability: 2=Irritable/Anxious Goose Flesh Skin: 3=Piloerection COWS Score: 14 BHS Progress Note (SOAP) Subjective: Stomach Cramping, Tremors, Body Aches, Anxious, Itching, Interrupted Sleep, H/A. Objective: PATIENT A & O X 3, OBSERVED AMBULATING ON UNIT UNASSISTED. IN NO ACUTE DISTRESS. 06/28/18 16:31 Vital Signs Temperature 98.4 F 06/28/18 13:02 Pulse Rate 76 06/28/18 13:02 Respiratory Rate 16 06/28/18 13:02 Blood Pressure 96/61 06/28/18 13:02 O2 Sat by Pulse Oximetry (%) Laboratory Tests 06/27/18 06/28/18 06/28/18 15:20 07:00 07:00 WBC 8.0 RBC 4.31 Hgb 11.0 Hct 34.8 MCV 80.9 MCH 25.6 L MCHC 31.6 L RDW 18.5 H Plt Count 400 D MPV 8.3 Sodium 137 Potassium 3.5 Chloride 102 Carbon Dioxide 29 Anion Gap 6 L BUN 7 Creatinine 0.6 Est GFR (CKD-EPI)AfAm 143.77 Est GFR (CKD-EPI)NonAf 124.04 Random Glucose 86 Calcium 9.2 Total Bilirubin 0.3 AST 13 L ALT 18 Alkaline Phosphatase 56 Total Protein 7.2 Albumin 3.1 L POC Urine HCG, Qual Negative RPR Titer HIV 1&2 Antibody Screen HIV P24 Antigen 06/28/18 06/28/18 07:00 07:00 WBC RBC Hgb Hct MCV MCH MCHC RDW Plt Count MPV Sodium Potassium Chloride Carbon Dioxide Anion Gap BUN Creatinine Est GFR (CKD-EPI)AfAm Est GFR (CKD-EPI)NonAf Random Glucose Calcium Total Bilirubin AST ALT Alkaline Phosphatase Total Protein Albumin POC Urine HCG, Qual RPR Titer Nonreactive HIV 1&2 Antibody Screen Negative HIV P24 Antigen Negative LABS NOTED. Assessment: 06/28/18 16:33 WITHDRAWAL SYMPTOMS. Plan: CONTINUE DETOX. INCREASE DAILY PO FLUID / WATER INTAKE. PRN COMPAZINE PO FOR NAUSEA. TOPICAL BENADRYL CREAM FOR ITCHING (AFFECTING MULTIPLE PARTS OF BODY).
[2018-06-28] MEDS: THIAMINE HCL 100 MG TABLET (FP) PO SCH (21:26)
[2018-06-28] MEDS: MELATONIN 5 MG TABLETS PO PRN (21:27)
[2018-06-28] MEDS: MIRTAZAPINE 15 MG TABLET (FP) PO SCH (21:27)
[2018-06-29] MEDS ORDERED: METHADONE HCL 10 MG TABLET (FOR DETOX USE ONLY) PO ONE (10:00)
[2018-06-29] MEDS: NICOTINE 14 MG/24 HOURS TOPICAL PATCH TD SCH (10:36)
[2018-06-29] MEDS: PRENATAL VITAMINS W/ FOLIC ACID TABLET (FP) PO SCH (10:37)
[2018-06-29] MEDS: diazePAM 5 MG TABLET PO SCH ×2 (10:37→22:37)
--- NOTE | 2018-06-29 12:17 | PN ---
[facility] CIWA - CIWA Score Nausea/Vomitin-No Nausea/No Vomiting Muscle Tremors: 4-Moderate,w/Arms Extend Anxiety: 4-Mod. Anxious/Guarded Agitation: 4-Moderately Restless Paroxysmal Sweats: 1-Minimal Palms Moist Orientation: 0-Oriented Tacttile Disturbances: 0-None Auditory Disturbances: 0-None Visual Disturbances: 0-None Headache: 0-None Present CIWA-Ar Total Score: 13 BHS COWS - Scale Resting Pulse: 0= [place] 80 or Below Sweatin= Chills/Flushing Restless Observation: 0= Sits Still Pupil Size: 0= Normal to Room Light Bone or Joint Aches: 4=Acute Joint/Muscle Pain Runny Nose/ Eye Tearin= None GI Upset > 30mins: 0= None Tremor Observation of Outstretched Hands: 1= Tremor [place], Not Seen Yawning Observation: 1= 1-2x During Session Anxiety or Irritability: 2=Irritable/Anxious Goose Flesh Skin: 0=Smooth Skin COWS Score: 9 S Progress Note (SOAP) Subjective: PT C/O ANXIETY, SWEATS/CHILLS,TREMORS, BODY ACHES, FATIGUE. Objective: 06/29/18 12:16 Vital Signs 06/29/18 06/29/18 06:04 06:30 Temperature 97.2 F L Pulse Rate 55 L Respiratory 18 18 Rate Blood Pressure 98/42 L Laboratory Tests 06/27/18 06/28/18 06/28/18 15:20 07:00 07:00 WBC 8.0 RBC 4.31 Hgb 11.0 Hct 34.8 MCV 80.9 MCH 25.6 L MCHC 31.6 L RDW 18.5 H Plt Count 400 D MPV 8.3 Sodium 137 Potassium 3.5 Chloride 102 Carbon Dioxide 29 Anion Gap 6 L BUN 7 Creatinine 0.6 Est GFR (CKD-EPI)AfAm 143.77 Est GFR (CKD-EPI)NonAf 124.04 Random Glucose 86 Calcium 9.2 Total Bilirubin 0.3 AST 13 L ALT 18 Alkaline Phosphatase 56 Total Protein 7.2 Albumin 3.1 L POC Urine HCG, Qual Negative RPR Titer HIV 1&2 Antibody Screen HIV P24 Antigen 06/28/18 06/28/18 07:00 07:00 WBC RBC Hgb Hct MCV MCH MCHC RDW Plt Count MPV Sodium Potassium Chloride Carbon Dioxide Anion Gap BUN Creatinine Est GFR (CKD-EPI)AfAm Est GFR (CKD-EPI)NonAf Random Glucose Calcium Total Bilirubin AST ALT Alkaline Phosphatase Total Protein Albumin POC Urine HCG, Qual RPR Titer Nonreactive HIV 1&2 Antibody Screen Negative HIV P24 Antigen Negative Assessment: 06/29/18 12:16 WITHDRAWAL SX Plan: CONTINUE DETOX MOTRIN PRN INCREASE PO FLUIDS
[2018-06-29] MEDS: MIRTAZAPINE 15 MG TABLET (FP) PO SCH (22:37)
[2018-06-29] MEDS: THIAMINE HCL 100 MG TABLET (FP) PO SCH (22:37)
[2018-06-29] MEDS: IBUPROFEN 400 MG TABLET (FP) PO PRN (22:39)
[2018-06-30] MEDS: MELATONIN 5 MG TABLETS PO PRN ×2 (01:19→22:49)
[2018-06-30] MEDS: diazePAM 5 MG TABLET PO PRN ×2 (01:19→10:24)
[2018-06-30] MEDS ORDERED: diazePAM 5 MG TABLET PO SCH (06:00)
[2018-06-30] MEDS ORDERED: METHADONE HCL 10 MG TABLET (FOR DETOX USE ONLY) PO ONE (10:00)
[2018-06-30] MEDS: PRENATAL VITAMINS W/ FOLIC ACID TABLET (FP) PO SCH (10:23)
[2018-06-30] MEDS: NICOTINE 14 MG/24 HOURS TOPICAL PATCH TD SCH (10:23)
--- NOTE | 2018-06-30 14:04 | PN ---
[facility] CIWA - CIWA Score Nausea/Vomitin-No Nausea/No Vomiting Muscle Tremors: 2 Anxiety: 2 Agitation: 2 Paroxysmal Sweats: 1-Minimal Palms Moist Orientation: 0-Oriented Tacttile Disturbances: 0-None Auditory Disturbances: 0-None Visual Disturbances: 0-None Headache: 1-Very Mild CIWA-Ar Total Score: 8 BHS COWS - Scale Resting Pulse: 0= [place] 80 or Below Sweatin= Chills/Flushing Restless Observation: 0= Sits Still Pupil Size: 0= Normal to Room Light Bone or Joint Aches: 1= Mild Discomfort Runny Nose/ Eye Tearin= Nasal Congestion GI Upset > 30mins: 1= Stomach Cramp Tremor Observation of Outstretched Hands: 1= Tremor [place], Not Seen Yawning Observation: 0= None Anxiety or Irritability: 1=Feels Anxious/Irritable Goose Flesh Skin: 0=Smooth Skin COWS Score: 6 BHS Progress Note (SOAP) Subjective: feeling better today encourage medication assisted treatment program maintenance tow picker narcan from pharmacy Objective: 06/30/18 14:03 Vital Signs Temperature 98.2 F 06/30/18 13:47 Pulse Rate 70 06/30/18 13:47 Respiratory Rate 16 06/30/18 13:47 Blood Pressure 86/59 L 06/30/18 13:47 O2 Sat by Pulse Oximetry (%) Laboratory Last Values WBC 8.0 K/mm3 (4.0-10.0) 06/28/18 07:00 RBC 4.31 M/mm3 (3.60-5.2) 06/28/18 07:00 Hgb 11.0 GM/dL (10.7-15.3) 06/28/18 07:00 Hct 34.8 % (32.4-45.2) 06/28/18 07:00 MCV 80.9 fl (80-96) 06/28/18 07:00 MCH 25.6 pg (25.7-33.7) L 06/28/18 07:00 MCHC 31.6 g/dl (32.0-36.0) L 06/28/18 07:00 RDW 18.5 % (11.6-15.6) H 06/28/18 07:00 Plt Count 400 K/MM3 (134-434) D 06/28/18 07:00 MPV 8.3 fl (7.5-11.1) 06/28/18 07:00 Sodium 137 mmol/L (136-145) 06/28/18 07:00 Potassium 3.5 mmol/L (3.5-5.1) 06/28/18 07:00 Chloride 102 mmol/L (98-107) 06/28/18 07:00 Carbon Dioxide 29 mmol/L (21-32) 06/28/18 07:00 Anion Gap 6 MMOL/L (8-16) L 06/28/18 07:00 BUN 7 mg/dL (7-18) 06/28/18 07:00 Creatinine 0.6 mg/dL (0.55-1.3) 06/28/18 07:00 Est GFR (CKD-EPI)AfAm 143.77 06/28/18 07:00 Est GFR (CKD-EPI)NonAf 124.04 06/28/18 07:00 Random Glucose 86 mg/dL (74-106) 06/28/18 07:00 Calcium 9.2 mg/dL (8.5-10.1) 06/28/18 07:00 Total Bilirubin 0.3 mg/dL (0.2-1) 06/28/18 07:00 AST 13 U/L (15-37) L 06/28/18 07:00 ALT 18 U/L (13-61) 06/28/18 07:00 Alkaline Phosphatase 56 U/L (45-117) 06/28/18 07:00 Total Protein 7.2 g/dl (6.4-8.2) 06/28/18 07:00 Albumin 3.1 g/dl (3.4-5.0) L 06/28/18 07:00 POC Urine HCG, Qual Negative 06/27/18 15:20 RPR Titer Nonreactive (NONREACTIVE) 06/28/18 07:00 HIV 1&2 Antibody Screen Negative 06/28/18 07:00 HIV P24 Antigen Negative 06/28/18 07:00 lab noted Assessment: 06/30/18 14:03 withdrawal sx Plan: continue detox
[2018-06-30] MEDS: THIAMINE HCL 100 MG TABLET (FP) PO SCH (22:49)
[2018-06-30] MEDS: MIRTAZAPINE 15 MG TABLET (FP) PO SCH (22:49)
[2018-06-30] MEDS: IBUPROFEN 400 MG TABLET (FP) PO PRN (22:51)
[2018-07-01] MEDS ORDERED: METHADONE HCL 5 MG TABLET (FOR DETOX USE ONLY) PO ONE (06:00)
[2018-07-01 09:34] VITALS: BP 97/56; PULSE 83; TEMP 96.6
[2018-07-01] MEDS: NICOTINE 14 MG/24 HOURS TOPICAL PATCH TD SCH (10:30)
[2018-07-01] MEDS: PRENATAL VITAMINS W/ FOLIC ACID TABLET (FP) PO SCH (10:30)
--- NOTE | 2018-07-01 14:11 | DS ---
[facility] Detox Discharge Summary Admission Date: 06/27/18 Discharge Date: 07/01/18 - History Present History: Opioid Dependence, Sedative Dependence Additional Comments: 27 years old female admitted on 06/27/18 for benzo and opiate withdrawal stabilization completed detox regimen [facility] - Physical Exam Results Vital Signs: Vital Signs Temperature 96.6 F L 07/01/18 09:27 Pulse Rate 83 07/01/18 09:27 Respiratory Rate 20 07/01/18 09:27 Blood Pressure 97/56 L 07/01/18 09:27 O2 Sat by Pulse Oximetry (%) Pertinent Admission Physical Exam Findings: benzo and opiate withdrawal sx Laboratory Last Values WBC 8.0 K/mm3 (4.0-10.0) 06/28/18 07:00 RBC 4.31 M/mm3 (3.60-5.2) 06/28/18 07:00 Hgb 11.0 GM/dL (10.7-15.3) 06/28/18 07:00 Hct 34.8 % (32.4-45.2) 06/28/18 07:00 MCV 80.9 fl (80-96) 06/28/18 07:00 MCH 25.6 pg (25.7-33.7) L 06/28/18 07:00 MCHC 31.6 g/dl (32.0-36.0) L 06/28/18 07:00 RDW 18.5 % (11.6-15.6) H 06/28/18 07:00 Plt Count 400 K/MM3 (134-434) D 06/28/18 07:00 MPV 8.3 fl (7.5-11.1) 06/28/18 07:00 Sodium 137 mmol/L (136-145) 06/28/18 07:00 Potassium 3.5 mmol/L (3.5-5.1) 06/28/18 07:00 Chloride 102 mmol/L (98-107) 06/28/18 07:00 Carbon Dioxide 29 mmol/L (21-32) 06/28/18 07:00 Anion Gap 6 MMOL/L (8-16) L 06/28/18 07:00 BUN 7 mg/dL (7-18) 06/28/18 07:00 Creatinine 0.6 mg/dL (0.55-1.3) 06/28/18 07:00 Est GFR (CKD-EPI)AfAm 143.77 06/28/18 07:00 Est GFR (CKD-EPI)NonAf 124.04 06/28/18 07:00 Random Glucose 86 mg/dL (74-106) 06/28/18 07:00 Calcium 9.2 mg/dL (8.5-10.1) 06/28/18 07:00 Total Bilirubin 0.3 mg/dL (0.2-1) 06/28/18 07:00 AST 13 U/L (15-37) L 06/28/18 07:00 ALT 18 U/L (13-61) 06/28/18 07:00 Alkaline Phosphatase 56 U/L (45-117) 06/28/18 07:00 Total Protein 7.2 g/dl (6.4-8.2) 06/28/18 07:00 Albumin 3.1 g/dl (3.4-5.0) L 06/28/18 07:00 POC Urine HCG, Qual Negative 06/27/18 15:20 RPR Titer Nonreactive (NONREACTIVE) 06/28/18 07:00 HIV 1&2 Antibody Screen Negative 06/28/18 07:00 HIV P24 Antigen Negative 06/28/18 07:00 lab noted - Treatment Hospital Course: Detox Protocol Followed, Detoxed Safely, Responded well, Discharged Condition Good, Rehab Referral Accepted Patient has Accepted [facility] Referral [facility] - Medication Discharge Medications: Ambulatory Orders Naloxone HCl [Narcan] 4 mg NS ASDIR PRN #1 spray 06/30/18 - Diagnosis (1) Opioid dependence with withdrawal Status: Acute (2) Sedative, hypnotic or anxiolytic dependence with withdrawal, uncomplicated Status: Acute (3) Substance induced mood disorder Status: Suspected (4) Asthma Status: Chronic Qualifiers: Asthma severity: mild Asthma persistence: intermittent Asthma complication type: with status asthmaticus Qualified Code(s): J45.22 - Mild intermittent asthma with status asthmaticus (5) Hepatitis C Status: Chronic Qualifiers: Viral hepatitis chronicity: unspecified Hepatic coma status: without hepatic coma Qualified Code(s): B19.20 - Unspecified viral hepatitis C without hepatic coma (6) Nicotine dependence Status: Acute Qualifiers: Nicotine product type: cigarettes Substance use status: in withdrawal Qualified Code(s): F17.213 - Nicotine dependence, cigarettes, with withdrawal - AMA Did Patient Leave Against Medical Advice: No
== END 2018-07-01 12:00 | disposition other institution (70) | DRG 773 ==
LOC: YASAS 14:12 → Y3N 16:36
PROVIDERS: ADMIT Surgery; ATTEND Surgery
PROC: HZ2ZZZZ Detoxification Services for Substance Abuse Treatment (ICD-10-PCS; principal; 2018-06-27)
DX: F11.23 Opioid dependence with withdrawal (principal); F13.230 Sedative, hypnotic or anxiolytic dependence with withdrawal, uncomplicated; F14.20 Cocaine dependence, uncomplicated; F17.213 Nicotine dependence, cigarettes, with withdrawal; F19.24 Other psychoactive substance dependence with psychoactive substance-induced mood disorder; F19.282 Other psychoactive substance dependence with psychoactive substance-induced sleep disorder; F32.9 Major depressive disorder, single episode, unspecified; J45.22 Mild intermittent asthma with status asthmaticus; B19.20 Unspecified viral hepatitis C without hepatic coma; Z86.19 Personal history of other infectious and parasitic diseases
CPT/HCPCS: 36415; 80053; 81025; 85027; 86593; 87389

== ENCOUNTER 2018-07-01 11:44 | Inpatient (IN) | payer OTHER ==
[2018-07-01] MEDS ORDERED: MAG HYDROX/AL HYDROX/SIMETH 30 ML UNIT-DOSE CUP PO PRN (14:15)
[2018-07-01] MEDS ORDERED: LOPERAMIDE HCL 2 MG CAPSULE PO PRN (14:15)
[2018-07-01] MEDS ORDERED: NICOTINE 14 MG/24 HOURS TOPICAL PATCH TD PRN (14:15)
[2018-07-01] MEDS ORDERED: guaiFENesin 200 MG/10 ML 10 ML UNIT-DOSE CUPS PO PRN (14:15)
[2018-07-01] MEDS ORDERED: ACETAMINOPHEN 325 MG TABLET (FP) PO PRN (14:15)
[2018-07-01] MEDS ORDERED: MAGNESIUM CITRATE 300 ML BOTTLE PO PRN (14:15)
[2018-07-01] MEDS ORDERED: MENTHOL/PHENOL 1 EACH UD MM PRN (14:15)
[2018-07-01] MEDS ORDERED: P-EPHED 60MG/TRIPROLIDI 2.5MG TABLET PO PRN (14:15)
--- NOTE | 2018-07-01 14:15 | HP ---
[facility] Rehab Assess/Revision - Admission History Admitted to Rehab [facility] Date of Admission to Rehab: 07/01/18 - Vital signs Vital Signs: Vital Signs Period Temp Pulse Resp BP Sys/Broussard Pulse Ox Last 24 Hr 98.4 F 79 18 101/66 - Findings Detox History & Physical reviewed: Yes Concur with findings: Yes Comments/Additional Findings: transferred from detox to rehab admission as per protocol Inpatient Rehab Admission - Rehab Decision to Admit Inpatient rehab admission?: Yes - Initial Determination Are CD services needed?: Yes Free of communicable disease: Yes Not in need of hospitalization: Yes - Rehab Admission Criteria Previous failed treatment: Yes Poor recovery environment: Yes Comorbidities: Yes Lacks judgement: No Patient is meeting Inpatient Rehab admission criteria:: Yes
[2018-07-01] MEDS: THIAMINE HCL 100 MG TABLET (FP) PO SCH (21:20)
[2018-07-01] MEDS: MELATONIN 5 MG TABLETS PO PRN (21:21)
[2018-07-01] MEDS ORDERED: MIRTAZAPINE 15 MG TABLET (FP) PO SCH (22:00)
[2018-07-02] MEDS: PRENATAL VITAMINS W/ FOLIC ACID TABLET (FP) PO SCH (09:12)
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
[2018-07-02] MEDS: risperiDONE 0.5 MG TABLET (FP) PO SCH ×2 (12:07→21:32)
[2018-07-02] MEDS: THIAMINE HCL 100 MG TABLET (FP) PO SCH (21:31)
[2018-07-02] MEDS: IBUPROFEN 400 MG TABLET (FP) PO PRN (21:32)
[2018-07-02] MEDS: MIRTAZAPINE 15 MG TABLET (FP) PO SCH (21:32)
[2018-07-03] MEDS: PRENATAL VITAMINS W/ FOLIC ACID TABLET (FP) PO SCH (10:14)
[2018-07-03] MEDS: risperiDONE 0.5 MG TABLET (FP) PO SCH ×2 (10:14→21:39)
--- NOTE | 2018-07-03 13:32 | PN ---
"BHS Progress Note (SOAP) Subjective: Patient requesting to start suboxone treatment. No indication in [facility] that she has ever had suboxone in the past. Objective: This report was requested by: Pam Story | Reference #: [id number]-RF-os prescriptions Pam Story | Reference #: [id number] -[place]-no prescriptions Pam Story | Reference #: [id number]-EjhhMelissa Gaspar [place]- no prescriptions No prescriptions for suboxone in [place], [place], [facility], [place], [place]. 07/03/18 13:29 Vital Signs (72 hours) 07/01/18 07/02/18 07/02/18 12:01 00:30 03:30 Temperature 98.4 F Pulse Rate 79 Respiratory 18 17 17 Rate Blood Pressure 101/66 07/02/18 07/03/18 07/03/18 07:23 00:30 03:30 Temperature 97.8 F Pulse Rate 63 Respiratory 18 16 16 Rate Blood Pressure 88/55 L 07/03/18 07:17 Temperature 97.8 F Pulse Rate 71 Respiratory 18 Rate Blood Pressure 104/62 07/03/18 16:05 UTOX was positive for methadone and benzos. Assessment: Substance Use Disorder; withdrawal 07/03/18 16:06 Plan: Started Suboxone 2 mg once a day. Will continue on suboxone 2 mg once a day for 2-3 days and then reassessment by THO Yeh."
[2018-07-03] MEDS: BUPRENORPHINE/NALOXONE 2 MG/0.5 MG FILM PACKET SL SCH (14:39)
[2018-07-03] MEDS: MIRTAZAPINE 15 MG TABLET (FP) PO SCH (21:39)
[2018-07-03] MEDS: THIAMINE HCL 100 MG TABLET (FP) PO SCH (21:39)
[2018-07-03] MEDS: IBUPROFEN 400 MG TABLET (FP) PO PRN (21:40)
[2018-07-04] MEDS: risperiDONE 0.5 MG TABLET (FP) PO SCH ×2 (10:08→21:22)
[2018-07-04] MEDS: PRENATAL VITAMINS W/ FOLIC ACID TABLET (FP) PO SCH (10:08)
[2018-07-04] MEDS: NICOTINE 14 MG/24 HOURS TOPICAL PATCH TD SCH (10:08)
[2018-07-04] MEDS: BUPRENORPHINE/NALOXONE 2 MG/0.5 MG FILM PACKET SL SCH (10:10)
[2018-07-04] MEDS: THIAMINE HCL 100 MG TABLET (FP) PO SCH (21:22)
[2018-07-04] MEDS: MIRTAZAPINE 15 MG TABLET (FP) PO SCH (21:22)
[2018-07-04] MEDS: MELATONIN 5 MG TABLETS PO PRN (21:24)
[2018-07-05] MEDS: risperiDONE 0.5 MG TABLET (FP) PO SCH ×2 (09:52→21:08)
[2018-07-05] MEDS: BUPRENORPHINE/NALOXONE 2 MG/0.5 MG FILM PACKET SL SCH (09:52)
[2018-07-05] MEDS: PRENATAL VITAMINS W/ FOLIC ACID TABLET (FP) PO SCH (09:52)
[2018-07-05] MEDS: NICOTINE 14 MG/24 HOURS TOPICAL PATCH TD SCH (09:52)
--- NOTE | 2018-07-05 10:24 | PN ---
BHS COWS - Scale Resting Pulse: 0= [place] 80 or Below Sweatin= Beads of Sweat on Face Restless Observation: 0= Sits Still Pupil Size: 0= Normal to Room Light Bone or Joint Aches: 2= Severe Diffuse Aches Runny Nose/ Eye Tearin= None GI Upset > 30mins: 0= None Tremor Observation of Outstretched Hands: 1= Tremor [place], Not Seen Yawning Observation: 0= None Anxiety or Irritability: 2=Irritable/Anxious Goose Flesh Skin: 0=Smooth Skin COWS Score: 8 BHS Progress Note (SOAP) Subjective: Patient c/o opioid cravings, sweating, anxiety and chills. Has hx of heroin use after mother years ago. She reports injecting and sniffing 2-3 bundles daily and was treated with suboxone 2 years ago at [facility]. Patient reports dose of suboxone was 8mg/2mg TID. DUR reviewed and dose not show active/past prescription. Patient currently on suboxone 2mg daily. Vital Signs Temperature 97.8 F 07/04/18 07:28 Pulse Rate 84 07/04/18 07:28 Respiratory Rate 16 07/05/18 03:30 Blood Pressure 94/60 07/04/18 07:28 O2 Sat by Pulse Oximetry (%) PE: Alert and oriented x 3 skin +beads of sweat on forehead +perrla,eoms intact bl ext full rom, tremors felt not seen amb ad dread anxious Objective: 07/05/18 10:21 PE: Alert and oriented x 3 skin +beads of sweat on forehead +perrla,eoms intact bl ext full rom, tremors felt not seen amb ad dread anxious Assessment: 07/05/18 10:24 Opioid dependence suboxone mat Plan: Patient connect to Outpatient suboxone clinic in [facility]. [address] [place] [address] Phone number [phone]. Patient to receive additional 2mg of suboxone now, then 4mg at 10pm to start Suboxone 4mg bid tomorrow motrin increased to 600mg q6h prn for right ankle discomfort (h/o right ORIF) continue to monitor clinically
[2018-07-05] MEDS ORDERED: BUPRENORPHINE/NALOXONE 2 MG/0.5 MG FILM PACKET SL ONE ×2 (10:35→22:00)
[2018-07-05] MEDS: MIRTAZAPINE 15 MG TABLET (FP) PO SCH (21:08)
[2018-07-05] MEDS: THIAMINE HCL 100 MG TABLET (FP) PO SCH (21:08)
[2018-07-05] MEDS: MELATONIN 5 MG TABLETS PO PRN (21:08)
[2018-07-06] MEDS: NICOTINE 14 MG/24 HOURS TOPICAL PATCH TD SCH (10:04)
[2018-07-06] MEDS: risperiDONE 0.5 MG TABLET (FP) PO SCH ×2 (10:04→21:08)
[2018-07-06] MEDS: PRENATAL VITAMINS W/ FOLIC ACID TABLET (FP) PO SCH (10:04)
[2018-07-06] MEDS: BUPRENORPHINE/NALOXONE 2 MG/0.5 MG FILM PACKET SL SCH ×2 (10:04→21:08)
[2018-07-06] MEDS: THIAMINE HCL 100 MG TABLET (FP) PO SCH (21:08)
[2018-07-06] MEDS: MIRTAZAPINE 15 MG TABLET (FP) PO SCH (21:09)
[2018-07-06] MEDS: MELATONIN 5 MG TABLETS PO PRN (21:09)
[2018-07-07] MEDS: IBUPROFEN 600 MG TABLET (FP) PO PRN (06:38)
[2018-07-07] MEDS: BUPRENORPHINE/NALOXONE 2 MG/0.5 MG FILM PACKET SL SCH ×2 (10:22→21:38)
[2018-07-07] MEDS: risperiDONE 0.5 MG TABLET (FP) PO SCH ×2 (10:22→21:38)
[2018-07-07] MEDS: NICOTINE 14 MG/24 HOURS TOPICAL PATCH TD SCH (10:22)
[2018-07-07] MEDS: PRENATAL VITAMINS W/ FOLIC ACID TABLET (FP) PO SCH (10:22)
[2018-07-07] MEDS: THIAMINE HCL 100 MG TABLET (FP) PO SCH (21:38)
[2018-07-07] MEDS: MIRTAZAPINE 15 MG TABLET (FP) PO SCH (21:38)
[2018-07-08] MEDS: NICOTINE 14 MG/24 HOURS TOPICAL PATCH TD SCH (10:20)
[2018-07-08] MEDS: PRENATAL VITAMINS W/ FOLIC ACID TABLET (FP) PO SCH (10:20)
[2018-07-08] MEDS: BUPRENORPHINE/NALOXONE 2 MG/0.5 MG FILM PACKET SL SCH ×2 (10:20→21:39)
[2018-07-08] MEDS: risperiDONE 0.5 MG TABLET (FP) PO SCH ×2 (10:20→21:37)
[2018-07-08] MEDS: THIAMINE HCL 100 MG TABLET (FP) PO SCH (21:36)
[2018-07-08] MEDS: MIRTAZAPINE 15 MG TABLET (FP) PO SCH (21:37)
[2018-07-08] MEDS: IBUPROFEN 600 MG TABLET (FP) PO PRN (21:38)
[2018-07-09] MEDS: IBUPROFEN 600 MG TABLET (FP) PO PRN (10:22)
[2018-07-09] MEDS: risperiDONE 0.5 MG TABLET (FP) PO SCH ×2 (10:22→21:44)
[2018-07-09] MEDS: PRENATAL VITAMINS W/ FOLIC ACID TABLET (FP) PO SCH (10:22)
[2018-07-09] MEDS: NICOTINE 14 MG/24 HOURS TOPICAL PATCH TD SCH (10:23)
[2018-07-09] MEDS: BUPRENORPHINE/NALOXONE 2 MG/0.5 MG FILM PACKET SL SCH ×2 (10:24→21:45)
[2018-07-09] MEDS: MIRTAZAPINE 15 MG TABLET (FP) PO SCH (21:44)
[2018-07-09] MEDS: THIAMINE HCL 100 MG TABLET (FP) PO SCH (21:44)
[2018-07-09] MEDS: MELATONIN 5 MG TABLETS PO PRN (21:45)
[2018-07-10] MEDS: NICOTINE 14 MG/24 HOURS TOPICAL PATCH TD SCH (10:24)
[2018-07-10] MEDS: risperiDONE 0.5 MG TABLET (FP) PO SCH ×2 (10:24→21:29)
[2018-07-10] MEDS: BUPRENORPHINE/NALOXONE 2 MG/0.5 MG FILM PACKET SL SCH ×2 (10:24→21:30)
[2018-07-10] MEDS: PRENATAL VITAMINS W/ FOLIC ACID TABLET (FP) PO SCH (10:24)
[2018-07-10] MEDS: THIAMINE HCL 100 MG TABLET (FP) PO SCH (21:29)
[2018-07-10] MEDS: MIRTAZAPINE 15 MG TABLET (FP) PO SCH (21:29)
[2018-07-10] MEDS: MELATONIN 5 MG TABLETS PO PRN (21:30)
[2018-07-10] MEDS: IBUPROFEN 600 MG TABLET (FP) PO PRN (21:31)
--- NOTE | 2018-07-11 09:18 | PN ---
Psychiatric Progress Note Vital Signs: Vital Signs Period Temp Pulse Resp BP Sys/Broussard Pulse Ox Last 24 Hr 97.8 F 76 16-18 94/58 Date of Session: 07/11/18 Chief Complaint:: "I have anxiety." HPI: This is day 11 of rehab for patient with history of alcohol, cocaine, opioid and benzodiazepine dependence. ROS: Patient coherent, mildly anxious, alert and oriented X3. Current Medications: Active Medications Generic Name Dose Route Start Last Admin Trade Name Freq PRN Reason Stop Dose Admin Acetaminophen 650 mg 07/01/18 14:15 Tylenol - PO Q4H PRN FEVER Al Hydroxide/Mg Hydroxide 30 ml 07/01/18 14:15 07/02/18 21:34 Mylanta Oral Suspension - PO 30 ml Q6H PRN Administration DYSPEPSIA Buprenorphine/Naloxone 2 each 07/06/18 10:00 07/10/18 21:30 Suboxone 2mg/0.5mg Sl Film - SL 2 each BID CAMILA Administration Eucalyptus/Menthol/Phenol/Sorbitol 1 each 07/01/18 14:15 Cepastat Lozenge - MM Q4H PRN SORE THROAT Guaifenesin 10 ml 07/01/18 14:15 Robitussin - PO Q6H PRN COUGH Hydroxyzine Pamoate 50 mg 07/11/18 09:15 Vistaril - PO Q4H PRN ANXIETY Ibuprofen 600 mg 07/05/18 10:01 07/10/18 21:31 Motrin - PO 600 mg Q6H PRN Administration Pain level 4-6 Loperamide HCl 4 mg 07/01/18 14:15 Imodium - PO Q6H PRN DIARRHEA Magnesium Citrate 300 ml 07/01/18 14:15 Citroma - PO Q48H PRN CONSTIPATION Magnesium Hydroxide 30 ml 07/01/18 14:15 Milk Of Magnesia - PO DAILY PRN CONSTIPATION Melatonin 5 mg 07/01/18 22:00 07/10/18 21:30 Melatonin PO 5 mg HS PRN Administration INSOMNIA Mirtazapine 15 mg 07/02/18 22:00 07/10/18 21:29 Remeron - PO 15 mg HS CAMILA Administration Nicotine 14 mg 07/04/18 10:00 07/10/18 10:24 Nicoderm Patch - TD 14 mg DAILY CAMILA Administration Nicotine Polacrilex 2 mg 07/01/18 14:15 Nicorette Gum - BUC Q2H PRN NICOTINE REPLACEMENT RX Multivit/Folic Acid/Iron 1 tab 07/02/18 10:00 07/10/18 10:24 Vitamins (Sjr) - PO 1 tab DAILY CAMILA Administration Pseudoephedrine/Triprolidine 1 combo 07/01/18 14:15 Actifed - PO TID PRN NASAL CONGESTION Risperidone 0.5 mg 07/02/18 11:45 07/10/18 21:29 Risperdal - PO 0.5 mg BID CAMILA Administration Thiamine HCl 100 mg 07/01/18 22:00 07/10/18 21:29 Vitamin B1 - PO 100 mg HS CAMILA Administration Medication(s) Change(s): Yes. Will order Vistaril 50mg q4h Current Side Effect: No Lab tests ordered: No Lab tests reviewed: Yes Provider note:: Patient coherent, alert and oriented X3. Patient reports anxiety throughout the day. States that she became accustom to buying xanax on the streets to help manage her anxiety. Medication reviewed. Patient agreeable to accepting vistaril 50mg q4h for anxiety. Patient also encouraged to developing coping skills while in rehab. Benefits and side effects discussed. Verbal consent. Patient satisifed and receptive to feedback. Total face to face time:: 25 Mental Status Exam - Mental Status Exam Alert and Oriented to: Time, Place, Person Cognitive Function: Good Patient Appearance: Well Groomed Mood: Anxious Affect: Appropriate Patient Behavior: Cooperative Speech Pattern: Appropriate Voice Loudness: Moderately Soft/Quiet Thought Process: Goal Oriented Thought Disorder: Not Present Hallucinations: Denies Suicidal Ideation: Denies Homicidal Ideation: Denies Insight/Judgement: Poor Sleep: Fair Appetite: Fair Muscle strength/Tone: Normal Gait/Station: Normal Psychiatric Treatment Plan - Problem List (1) Opioid dependence Qualifiers: Substance use status: uncomplicated Qualified Code(s): F11.20 - Opioid dependence, uncomplicated (2) Cocaine dependence Qualifiers: Substance use status: uncomplicated Qualified Code(s): F14.20 - Cocaine dependence, uncomplicated (3) Sedative hypnotic or anxiolytic dependence Comment: .. (4) Substance induced mood disorder Comment: .. (5) Substance-induced anxiety disorder Comment: .. (6) Schizophrenia Comment: Suspected diagnosis of schizophrenia
[2018-07-11] MEDS: PRENATAL VITAMINS W/ FOLIC ACID TABLET (FP) PO SCH (10:10)
[2018-07-11] MEDS: risperiDONE 0.5 MG TABLET (FP) PO SCH ×2 (10:10→21:41)
[2018-07-11] MEDS: NICOTINE 14 MG/24 HOURS TOPICAL PATCH TD SCH (10:10)
[2018-07-11] MEDS: BUPRENORPHINE/NALOXONE 2 MG/0.5 MG FILM PACKET SL SCH ×2 (10:11→21:41)
[2018-07-11] MEDS: hydrOXYzine PAMOATE 50 MG CAPSULE (FP) PO PRN ×2 (10:37→20:33)
--- NOTE | 2018-07-11 13:00 | PN ---
[facility] Progress Note (SOAP) Subjective: patient c/o pain in right ankle. PMHx of injury to both ankles resulting in surgery. Objective: Bilateral ankles: skin clear, no discoloration, scars are old and well healed. No edema noted. No tenderness on palpation. Patient is able to bear full weight and ambulate without assistance or devices; no hesitancy in walking. 07/11/18 12:55 Assessment: Hx of bilateral ankle surgery. Plan: Encouraged patient to ask for pain medication whenever she feels discomfort.
[2018-07-11] MEDS: IBUPROFEN 600 MG TABLET (FP) PO PRN (14:52)
[2018-07-11] MEDS: MIRTAZAPINE 15 MG TABLET (FP) PO SCH (21:41)
[2018-07-11] MEDS: THIAMINE HCL 100 MG TABLET (FP) PO SCH (21:41)
[2018-07-11] MEDS: MELATONIN 5 MG TABLETS PO PRN (21:41)
[2018-07-12] MEDS: NICOTINE 14 MG/24 HOURS TOPICAL PATCH TD SCH (10:16)
[2018-07-12] MEDS: risperiDONE 0.5 MG TABLET (FP) PO SCH ×2 (10:16→21:42)
[2018-07-12] MEDS: hydrOXYzine PAMOATE 50 MG CAPSULE (FP) PO PRN ×3 (10:17→21:41)
[2018-07-12] MEDS: BUPRENORPHINE/NALOXONE 2 MG/0.5 MG FILM PACKET SL SCH ×2 (10:17→21:42)
[2018-07-12] MEDS: PRENATAL VITAMINS W/ FOLIC ACID TABLET (FP) PO SCH (10:17)
[2018-07-12] MEDS: NICOTINE POLACRILEX 2 MG GUM BUC PRN ×2 (12:53→21:43)
[2018-07-12] MEDS: THIAMINE HCL 100 MG TABLET (FP) PO SCH (21:39)
[2018-07-12] MEDS: IBUPROFEN 600 MG TABLET (FP) PO PRN (21:41)
[2018-07-12] MEDS: MIRTAZAPINE 15 MG TABLET (FP) PO SCH (21:42)
[2018-07-13] MEDS ORDERED: BUPRENORPHINE/NALOXONE 2 MG/0.5 MG FILM PACKET SL SCH (10:00)
[2018-07-13] MEDS: NICOTINE 14 MG/24 HOURS TOPICAL PATCH TD SCH (10:10)
[2018-07-13] MEDS: PRENATAL VITAMINS W/ FOLIC ACID TABLET (FP) PO SCH (10:10)
[2018-07-13] MEDS: risperiDONE 0.5 MG TABLET (FP) PO SCH ×2 (10:10→21:14)
[2018-07-13] MEDS: hydrOXYzine PAMOATE 50 MG CAPSULE (FP) PO PRN ×3 (10:10→21:15)
[2018-07-13] MEDS: BUPRENORPHINE/NALOXONE 2 MG/0.5 MG FILM PACKET SL SCH ×2 (10:10→21:14)
[2018-07-13] MEDS: THIAMINE HCL 100 MG TABLET (FP) PO SCH (21:14)
[2018-07-13] MEDS: MIRTAZAPINE 15 MG TABLET (FP) PO SCH (21:14)
[2018-07-13] MEDS: MELATONIN 5 MG TABLETS PO PRN (21:14)
[2018-07-13] MEDS: NICOTINE POLACRILEX 2 MG GUM BUC PRN (21:15)
[2018-07-14] MEDS: NICOTINE 14 MG/24 HOURS TOPICAL PATCH TD SCH (10:09)
[2018-07-14] MEDS: hydrOXYzine PAMOATE 50 MG CAPSULE (FP) PO PRN ×3 (10:09→21:10)
[2018-07-14] MEDS: risperiDONE 0.5 MG TABLET (FP) PO SCH ×2 (10:09→21:10)
[2018-07-14] MEDS: PRENATAL VITAMINS W/ FOLIC ACID TABLET (FP) PO SCH (10:09)
[2018-07-14] MEDS: NICOTINE POLACRILEX 2 MG GUM BUC PRN ×2 (10:10→14:52)
[2018-07-14] MEDS: BUPRENORPHINE/NALOXONE 2 MG/0.5 MG FILM PACKET SL SCH ×2 (10:10→21:14)
[2018-07-14] MEDS ORDERED: PT OWN MED DRAWER 7, Y5N ONE (14:51)
[2018-07-14] MEDS: THIAMINE HCL 100 MG TABLET (FP) PO SCH (21:10)
[2018-07-14] MEDS: MIRTAZAPINE 15 MG TABLET (FP) PO SCH (21:10)
[2018-07-14] MEDS: MELATONIN 5 MG TABLETS PO PRN (21:11)
[2018-07-15] MEDS: hydrOXYzine PAMOATE 50 MG CAPSULE (FP) PO PRN ×3 (08:52→21:34)
[2018-07-15] MEDS: risperiDONE 0.5 MG TABLET (FP) PO SCH ×2 (09:37→21:34)
[2018-07-15] MEDS: NICOTINE 14 MG/24 HOURS TOPICAL PATCH TD SCH (09:37)
[2018-07-15] MEDS: PRENATAL VITAMINS W/ FOLIC ACID TABLET (FP) PO SCH (09:37)
[2018-07-15] MEDS: BUPRENORPHINE/NALOXONE 2 MG/0.5 MG FILM PACKET SL SCH (09:38)
[2018-07-15] MEDS: NICOTINE POLACRILEX 2 MG GUM BUC PRN (09:39)
[2018-07-15] MEDS ORDERED: PT OWN MED DRAWER 7, Y5N ONE ×2 (09:52→15:19)
[2018-07-15] MEDS ORDERED: COLLOIDAL OATMEAL 1 BAR EACH TP PRN (11:36)
[2018-07-15] MEDS: THIAMINE HCL 100 MG TABLET (FP) PO SCH (21:34)
[2018-07-15] MEDS: MIRTAZAPINE 15 MG TABLET (FP) PO SCH (21:34)
[2018-07-15] MEDS: IBUPROFEN 600 MG TABLET (FP) PO PRN (21:34)
[2018-07-15] MEDS: MELATONIN 5 MG TABLETS PO PRN (21:37)
[2018-07-15] MEDS ORDERED: BUPRENORPHINE/NALOXONE 2 MG/0.5 MG FILM PACKET SL SCH (22:00)
[2018-07-16] MEDS: PRENATAL VITAMINS W/ FOLIC ACID TABLET (FP) PO SCH (09:14)
[2018-07-16] MEDS: risperiDONE 0.5 MG TABLET (FP) PO SCH ×2 (09:14→21:35)
[2018-07-16] MEDS: NICOTINE 14 MG/24 HOURS TOPICAL PATCH TD SCH (09:14)
[2018-07-16] MEDS: hydrOXYzine PAMOATE 50 MG CAPSULE (FP) PO PRN ×3 (09:15→21:35)
[2018-07-16] MEDS: NICOTINE POLACRILEX 2 MG GUM BUC PRN (09:16)
[2018-07-16] MEDS ORDERED: BUPRENORPHINE/NALOXONE 8 MG/2 MG FILM PACKET SL SCH (10:00)
[2018-07-16] MEDS: IBUPROFEN 600 MG TABLET (FP) PO PRN (21:35)
[2018-07-16] MEDS: MELATONIN 5 MG TABLETS PO PRN (21:35)
[2018-07-16] MEDS: MIRTAZAPINE 15 MG TABLET (FP) PO SCH (21:35)
[2018-07-16] MEDS: THIAMINE HCL 100 MG TABLET (FP) PO SCH (21:36)
--- NOTE | 2018-07-17 08:17 | PN ---
[facility] COWS - Scale Resting Pulse: 0= FL 80 or Below Sweatin= Chills/Flushing Restless Observation: 1= Difficult to Sit Still Pupil Size: 0= Normal to Room Light Bone or Joint Aches: 0= None Runny Nose/ Eye Tearin= None GI Upset > 30mins: 0= None Tremor Observation of Outstretched Hands: 0= None Yawning Observation: 1= 1-2x During Session Anxiety or Irritability: 2=Irritable/Anxious Goose Flesh Skin: 0=Smooth Skin COWS Score: 5 [facility] Progress Note (SOAP) Subjective: c/o of withdrawal symptoms and opiate craving with poor relift on suboxone 8 mg SL QD Objective: 07/17/18 08:16 Vital Signs Temperature 97.7 F 07/16/18 06:54 Pulse Rate 76 07/16/18 06:54 Respiratory Rate 16 07/17/18 07:02 Blood Pressure 93/50 L 07/16/18 06:54 O2 Sat by Pulse Oximetry (%) Assessment: 07/17/18 08:17 Patient stable re:minor opiod cravings, needs bup dose adjustment Plan: increase BUP from 8mg qd to 8 mg bid continue to monitor
[2018-07-17] MEDS: risperiDONE 0.5 MG TABLET (FP) PO SCH ×2 (09:05→21:40)
[2018-07-17] MEDS: PRENATAL VITAMINS W/ FOLIC ACID TABLET (FP) PO SCH (09:05)
[2018-07-17] MEDS: NICOTINE 14 MG/24 HOURS TOPICAL PATCH TD SCH (09:06)
[2018-07-17] MEDS: BUPRENORPHINE/NALOXONE 8 MG/2 MG FILM PACKET SL SCH ×2 (09:06→21:40)
[2018-07-17] MEDS: NICOTINE POLACRILEX 2 MG GUM BUC PRN (09:06)
[2018-07-17] MEDS: hydrOXYzine PAMOATE 50 MG CAPSULE (FP) PO PRN ×3 (09:06→21:40)
[2018-07-17] MEDS ORDERED: PT OWN MED DRAWER 7, Y5N ONE (15:40)
[2018-07-17] MEDS: IBUPROFEN 600 MG TABLET (FP) PO PRN (19:00)
[2018-07-17] MEDS: THIAMINE HCL 100 MG TABLET (FP) PO SCH (21:40)
[2018-07-17] MEDS: MIRTAZAPINE 15 MG TABLET (FP) PO SCH (21:40)
[2018-07-17] MEDS: MELATONIN 5 MG TABLETS PO PRN (21:40)
[2018-07-18] MEDS: PRENATAL VITAMINS W/ FOLIC ACID TABLET (FP) PO SCH (09:56)
[2018-07-18] MEDS: NICOTINE 14 MG/24 HOURS TOPICAL PATCH TD SCH (09:56)
[2018-07-18] MEDS: risperiDONE 0.5 MG TABLET (FP) PO SCH ×2 (09:56→21:35)
[2018-07-18] MEDS: BUPRENORPHINE/NALOXONE 8 MG/2 MG FILM PACKET SL SCH ×2 (09:56→21:35)
[2018-07-18] MEDS: NICOTINE POLACRILEX 2 MG GUM BUC PRN (09:57)
[2018-07-18] MEDS: hydrOXYzine PAMOATE 50 MG CAPSULE (FP) PO PRN ×2 (09:57→19:55)
[2018-07-18] MEDS: IBUPROFEN 600 MG TABLET (FP) PO PRN (21:35)
[2018-07-18] MEDS: MIRTAZAPINE 15 MG TABLET (FP) PO SCH (21:36)
[2018-07-18] MEDS: THIAMINE HCL 100 MG TABLET (FP) PO SCH (21:36)
[2018-07-18] MEDS: MELATONIN 5 MG TABLETS PO PRN (21:36)
[2018-07-19] MEDS: hydrOXYzine PAMOATE 50 MG CAPSULE (FP) PO PRN ×3 (09:41→21:14)
[2018-07-19] MEDS: NICOTINE 14 MG/24 HOURS TOPICAL PATCH TD SCH (09:41)
[2018-07-19] MEDS: PRENATAL VITAMINS W/ FOLIC ACID TABLET (FP) PO SCH (09:41)
[2018-07-19] MEDS: risperiDONE 0.5 MG TABLET (FP) PO SCH ×2 (09:41→21:13)
[2018-07-19] MEDS: BUPRENORPHINE/NALOXONE 8 MG/2 MG FILM PACKET SL SCH ×2 (09:42→21:13)
[2018-07-19] MEDS: NICOTINE POLACRILEX 2 MG GUM BUC PRN (09:43)
[2018-07-19] MEDS: MAGNESIUM HYDROX 2400MG/30ML ORAL SUSPENSION 30 ML CUP PO PRN (15:52)
[2018-07-19] MEDS: THIAMINE HCL 100 MG TABLET (FP) PO SCH (21:13)
[2018-07-19] MEDS: MIRTAZAPINE 15 MG TABLET (FP) PO SCH (21:13)
[2018-07-19] MEDS: MELATONIN 5 MG TABLETS PO PRN (21:14)
[2018-07-20] MEDS: PRENATAL VITAMINS W/ FOLIC ACID TABLET (FP) PO SCH (09:58)
[2018-07-20] MEDS: NICOTINE 14 MG/24 HOURS TOPICAL PATCH TD SCH (09:58)
[2018-07-20] MEDS: risperiDONE 0.5 MG TABLET (FP) PO SCH ×2 (09:59→21:29)
[2018-07-20] MEDS: MAGNESIUM HYDROX 2400MG/30ML ORAL SUSPENSION 30 ML CUP PO PRN (10:01)
[2018-07-20] MEDS: hydrOXYzine PAMOATE 50 MG CAPSULE (FP) PO PRN ×3 (10:01→21:29)
[2018-07-20] MEDS: BUPRENORPHINE/NALOXONE 8 MG/2 MG FILM PACKET SL SCH ×2 (10:39→21:29)
[2018-07-20] MEDS: NICOTINE POLACRILEX 2 MG GUM BUC PRN (13:31)
[2018-07-20] MEDS: IBUPROFEN 600 MG TABLET (FP) PO PRN (21:29)
[2018-07-20] MEDS: MIRTAZAPINE 15 MG TABLET (FP) PO SCH (21:29)
[2018-07-20] MEDS: THIAMINE HCL 100 MG TABLET (FP) PO SCH (21:29)
[2018-07-21] MEDS: risperiDONE 0.5 MG TABLET (FP) PO SCH ×2 (10:07→21:16)
[2018-07-21] MEDS: PRENATAL VITAMINS W/ FOLIC ACID TABLET (FP) PO SCH (10:07)
[2018-07-21] MEDS: NICOTINE POLACRILEX 2 MG GUM BUC PRN (10:07)
[2018-07-21] MEDS: NICOTINE 14 MG/24 HOURS TOPICAL PATCH TD SCH (10:07)
[2018-07-21] MEDS: BUPRENORPHINE/NALOXONE 8 MG/2 MG FILM PACKET SL SCH ×2 (10:09→21:16)
--- NOTE | 2018-07-21 13:57 | PN ---
[facility] Progress Note Note: Patient is scheduled for discharge tomorrow. Script for 30 days supply of medications(Risperdal 0.5 mg/bid, Remeron 15 mg/hs) will be electronically transmitted to [facility] at [address] [place] [address]
[2018-07-21] MEDS: hydrOXYzine PAMOATE 50 MG CAPSULE (FP) PO PRN (17:33)
[2018-07-21] MEDS: MIRTAZAPINE 15 MG TABLET (FP) PO SCH (21:16)
[2018-07-21] MEDS: THIAMINE HCL 100 MG TABLET (FP) PO SCH (21:16)
[2018-07-21] MEDS: MELATONIN 5 MG TABLETS PO PRN (21:16)
[2018-07-22] MEDS: IBUPROFEN 600 MG TABLET (FP) PO PRN (06:31)
[2018-07-22 07:06] VITALS: BP 116/68; PULSE 62; TEMP 97.7
[2018-07-22] MEDS: hydrOXYzine PAMOATE 50 MG CAPSULE (FP) PO PRN (09:19)
[2018-07-22] MEDS: NICOTINE 14 MG/24 HOURS TOPICAL PATCH TD SCH (09:19)
[2018-07-22] MEDS: PRENATAL VITAMINS W/ FOLIC ACID TABLET (FP) PO SCH (09:19)
[2018-07-22] MEDS: BUPRENORPHINE/NALOXONE 8 MG/2 MG FILM PACKET SL SCH (09:19)
[2018-07-22] MEDS: risperiDONE 0.5 MG TABLET (FP) PO SCH (09:19)
--- NOTE | 2018-07-22 10:09 | PN ---
S Progress Note (SOAP) Subjective: PT COMPLETED REHAB AND DISCHARGED TODAY. PT MET WITH COUNSELLOR, MEGAN OLMSTEAD THIS MORNING FOR FINAL AFTERCARE ARRANGEMENTS. PT HAS BEEN REFERRED TO [facility]. ON [address], [place], [place] FOR CD AFTERCARE. PT REPORTS SHE HAS PRIMARY CARE IN [place] BUT DOES NOT REMEMBER THE NAME OF PROVIDER. COURTESY RX FOR SUBOXONE 8MG/2MG SL BID X 14 DAYS AND NARCAN SPRAY #1 ELECTRONICALLY SENT TO [facility] FOR HUMAN RESOURCES ADVISOR AFTER DISCHARGE. PT IS ALERT O X 3. AMBULATES WITH STEADY GAIT. DENIES S/H/I. Objective: 07/22/18 10:09 Vital Signs - 24 hr 07/22/18 07/22/18 07/22/18 00:30 03:30 07:05 Temperature 97.7 F Pulse Rate 62 Respiratory 16 16 18 Rate Blood Pressure 116/68 Home Medications Medication Instructions Recorded Naloxone HCl [Narcan] 4 mg NS ASDIR PRN #1 spray 06/30/18 Mirtazapine [Remeron -] 7.5 mg PO HS 07/01/18 Buprenorphine/Naloxone [Suboxone 1 each SL BID #14 packet MDD 2 07/19/18 8Mg/2Mg Sl Film -] Mirtazapine [Remeron -] 15 mg PO HS #30 tablet 07/21/18 Risperidone [Risperdal -] 0.5 mg PO BID #60 tablet 07/21/18 Assessment: 07/22/18 10:10 NAD MEDICALLY STABLE Plan: FOLLOW UP WITH CD AFTERCARE RECOMMENDATIONS. FOLLOW UP WITH PRIMARY CARE FOR MEDICAL MANAGEMENT WITHIN 1-2 WEEKS AFTER DISCHARGE.
== END 2018-07-22 11:20 | disposition home or self-care (01) | DRG 772 ==
LOC: YASAS 11:44 → Y3E 11:45
PROVIDERS: ADMIT Neuromusculoskeletal Medicine & OMM; ATTEND Neuromusculoskeletal Medicine & OMM
PROC: HZ42ZZZ Group Counseling for Substance Abuse Treatment, Cognitive-Behavioral (ICD-10-PCS; principal; 2018-07-01)
DX: F11.20 Opioid dependence, uncomplicated (principal); F13.20 Sedative, hypnotic or anxiolytic dependence, uncomplicated; F14.20 Cocaine dependence, uncomplicated; F19.24 Other psychoactive substance dependence with psychoactive substance-induced mood disorder; F19.280 Other psychoactive substance dependence with psychoactive substance-induced anxiety disorder; F20.9 Schizophrenia, unspecified